=== PATIENT | female | born 1960 | race Caucasian/White ===

== ENCOUNTER 2017-07-24 18:13 | Emergency (ER) | payer SELFPAY ==
[~2017-07-24] VITALS: Ht 165.1 cm; Wt 68.0 kg
[2017-07-24 19:03] LABS: HEMATOCRIT 44.7 % (34.6-47.8); HEMOGLOBIN 15.1 g/dL (11.7-16.4); WHITE BLOOD COUNT 8.4 x10^3/uL (3.4-10)
[2017-07-24 19:13] LABS: BLOOD UREA NITROGEN 27 mg/dL (7-18)
[2017-07-24 19:15] VITALS: BP 133/77
== END 2017-07-24 21:06 | disposition home or self-care (01) ==
LOC: ED 20:50
DX: H43.11 Vitreous hemorrhage, right eye (principal); E11.65 Type 2 diabetes mellitus with hyperglycemia
CPT/HCPCS: 36415; 80048; 82040; 82962; 85025; 99284